=== PATIENT | male | born 1985 | race Caucasian/White ===

== ENCOUNTER 2016-06-08 10:05 | Emergency (ER) | payer MEDICAID ==
[~2016-06-08] VITALS: Wt 72.5 kg
[2016-06-08] MEDS ORDERED: ALBU18HF INHALATION (10:46)
[2016-06-08] MEDS ORDERED: PRED20TA PO (10:46)
--- NOTE | 2016-06-08 13:51 | ERD ---
ER Documentation Chief Complaint Date/Time DATE: 06/08/16 TIME: 13:49 Chief Complaint COUGH WITH SORE THROAT BUT NO EAR PAIN. INTERMITTENT FEVERS HPI Patient is a 31-year-old male with no medical problems who presents with cough and fever. He has had cough for the past 4 weeks and fever which started last night. He also has diffuse fatigue. He also has headache and wheezing. He tried [id number] TheraFlu and Robitussin. He had chest pain last week along with a cough but no chest pain currently. Upon review of old medical records this is the patient's second visit to the emergency department since 2012. He does not currently have a primary doctor. ROS All systems reviewed and are negative except as per history of present illness. Medications Home Meds Active Scripts Albuterol Sulfate* (Ventolin HFA*) 18 Gm Hfa.aer.ad, 2 PUFF INHALATION Q4H, #1 INHALER Prov:DAVID DYER MD 06/08/16 Prednisone* (Prednisone*) 20 Mg Tab, 60 MG PO DAILY for 5 Days, TAB Prov:DAVID DYER MD 06/08/16 Allergies Allergies: Coded Allergies: No Known Allergy (Unverified , 06/08/16) PMhx/Soc Medical and Surgical Hx: pt denies Surgical Hx Hx Respiratory Disorders: Yes (bronchitis) Hx Cardiac Disorders: No Hx Psychiatric Problems: No Hx Miscellaneous Medical Probl: No Hx Alcohol Use: Yes (socially) Hx Substance Use: No Hx Tobacco Use: No Smoking Status: Never smoker FmHx Family History: No diabetes Physical Exam Vitals Vital Signs Date Time Temp Pulse Resp B/P Pulse Ox O2 Delivery O2 Flow Rate FiO2 06/08/16 10:08 99.1 105 22 123/85 98 Physical Exam Const: No acute distress Head: Atraumatic Eyes: Normal Conjunctiva ENT: Normal External Ears, Nose and Mouth. Neck: Full range of motion..~ No meningismus. Resp: Diffuse expiratory wheezing without retractions or accessory muscle use Cardio: Regular rate and rhythm, no murmurs Abd: Soft, non tender, non distended. Normal bowel sounds Skin: No petechiae or rashes Back: No midline or flank tenderness Ext: No cyanosis, or edema Neur: Awake and alert Psych: Normal Mood and Affect Procedures/MDM Patient is a 31-year-old male presents with what appears to be an acute viral infection with upper respiratory infection. I believe this is causing airway inflammation leading to wheezing. He will be treated with albuterol inhaler and prednisone for 5 days. I doubt serious bacterial infection. I doubt pneumonia, pneumothorax, or pulmonary embolism. I believe outpatient management is appropriate. The patient can return sooner for any worsening symptoms. I do not believe the patient needs further workup or admission to the hospital at this time. However the patient will need close follow-up with a primary doctor within 24-48 hours and since he does not currently have a primary doctor I will give him information for the local clinics. Departure Diagnosis: Primary Impression: URI (upper respiratory infection) URI type: unspecified viral URI Qualified Code: J06.9 - Viral upper respiratory tract infection Additional Impression: Cough Condition: Fair Patient Instructions: Uri, Viral, No Abx (Adult) Referrals: [facility] Usted se clancy hecho un examen mdico de control que le indica que no est en bulmaro condicin que requiera tratamiento urgente en el Departamento de Emergencia. Un estudio ms profundo y el tratamiento de paul condicin pueden esperar sin ningn riesgo hasta que usted sea atendida/o en el consultorio de paul mdico o bulmaro cl demian. Es responsabilidad suya arreglar bulmaro shadi para el seguimiento del olga. MANEJO DE CONDICIONES NO URGENTES EN EL FUTURO 1) Si usted tiene un mdico de atencin primaria: Usted debera llamar a paul mdico de atencin primaria antes de venir al departamento de emergencia. Despus de las horas de consultorio, paul doctor o paul asociado/a est disponible por telfono. El mdico o enfermero de lani en el servicio telefnico puede asesorarle por wilian medio para atender el problema, o olga contrario se puede programar bulmaro shadi. 2) Si usted no tiene un mdico de atencin primaria: Llame al mdico o clnica de referencia que aparece abajo penny las horas de consultorio para hacer bulmaro shadi para que le vean. CLINICAS: [facility] [phone] [facility] [phone] [facility] [phone] [place] [phone] [place] [address] [phone] [facility] [phone] [address] Additional Instructions: Llame al doctor MAANA y jessy bulmaro SHADI PARA DENTRO DE 1-2 STOUT.Dgale a la secretaria que nosotros le instruimos hacer esta shadi.Avise o llame si paul condicin se empeora antes de la shadi. Regresa aqui si peor o no mejor. DAVID DYER MD Jun 08, 2016 13:51
== END 2016-06-08 11:16 | disposition home or self-care (01) ==
LOC: FTE 10:05
DX: J06.9 Acute upper respiratory infection, unspecified (principal)
CPT/HCPCS: 99284

== ENCOUNTER 2017-06-04 20:19 | Emergency (ER) | END 2017-06-05 00:04 | disposition home or self-care (01) ==

== ENCOUNTER 2018-05-02 04:56 | Emergency (ER) | payer MEDICAID ==
[~2018-05-02] VITALS: Wt 83.2 kg
[~2018-05-02 04:56] MED LIST: ALBU18HF INHALATION; ALBU8.5H8 INH; AZIT250T PO; BENZ-6 PO; PRED20TA PO
[2018-05-02 05:01] VITALS: BP 141/83; PULSE 95; RESP 20
[2018-05-02] MEDS ORDERED: AZIT250T PO (05:32)
[2018-05-02] MEDS ORDERED: PROM6.2515 PO (05:32)
[2018-05-02] MEDS ORDERED: ALBU8.5H8 INH (05:32)
[2018-05-02] MEDS ORDERED: BENZ-6 PO (05:32)
[2018-05-02] MEDS ORDERED: MED4DP PO (05:32)
--- NOTE | 2018-05-02 05:38 | ERD ---
ER Documentation Chief Complaint Chief Complaint COUGH, CONGESTION, SOB X'S 5 DAYS HPI 33-year-old male presenting with dry cough times 2 days. Patient has a mild runny nose. No fevers. No medication use. Denies any chest pain. Denies pleuritic chest pain. Denies medical problems. NKDA. Surgical history denies. Social history denies ROS All systems reviewed and are negative except as per history of present illness. Medications Home Meds Active Scripts Albuterol Sulfate* (Proair HFA*) 8.5 Gm Hfa.aer.ad, 2 PUFF INH Q4, #1 INHALER Prov:JOANNE PÉREZ PA-C 05/02/18 Methylprednisolone* (Medrol* DOSE PACK) 4 Mg/Dose-Pack Tab.ds.pk, 4 MG PO . DIRECTED, #1 PACKET Prov:JOANNE PÉREZ PA-C 05/02/18 Promethazine Hcl* (Promethazine Hcl* Syrup) 6.25 Mg/5 Ml Syrup, 6.25 MG PO Q6H PRN for COUGH, #100 ML Prov:JOANNE PÉREZ PA-C 05/02/18 Benzonatate* (Tessalon Perle*) 100 Mg Capsule, 100 MG PO Q8H PRN for COUGH, #30 CAP Prov:JOANNE PÉREZ PA-C 05/02/18 Azithromycin* (Zithromax*) 250 Mg Tablet, 250 MG PO .ZPACK DIRECTED, #6 TAB TAKE 500 MG (2 TABS) THE FIRST DAY THEN 250 MG (1 TAB) DAYS 2-5 Prov:JOANNE PÉREZ PA-C 05/02/18 Azithromycin* (Zithromax*) 250 Mg Tablet, 250 MG PO .ZPACK DIRECTED, #6 TAB TAKE 500 MG (2 TABS) THE FIRST DAY THEN 250 MG (1 TAB) DAYS 2-5 Prov:MARYCRUZ PAT PA-C 06/04/17 Albuterol Sulfate* (Proair HFA*) 8.5 Gm Hfa.aer.ad, 2 PUFF INH Q4, #1 INHALER Prov:MARYCRUZ PAT PA-C 06/04/17 Benzonatate* (Tessalon Perle*) 100 Mg Capsule, 100 MG PO Q8H PRN for COUGH, #20 CAP Prov:MARYCRUZ PAT PA-C 06/04/17 Albuterol Sulfate* (Ventolin HFA*) 18 Gm Hfa.aer.ad, 2 PUFF INHALATION Q4H, #1 INHALER Prov:DAVID DYER MD 06/08/16 Prednisone* (Prednisone*) 20 Mg Tab, 60 MG PO DAILY for 5 Days, TAB Prov:DAVID DYER MD 06/08/16 Allergies Allergies: Coded Allergies: No Known Allergy (Unverified , 06/08/16) PMhx/Soc Hx Respiratory Disorders: Yes (bronchitis) Hx Cardiac Disorders: No Hx Psychiatric Problems: No Hx Miscellaneous Medical Probl: No Hx Alcohol Use: Yes (socially) Hx Substance Use: No Hx Tobacco Use: No FmHx Family History: No diabetes, No coronary disease, No other Physical Exam Vitals Vital Signs Date Temp Pulse Resp B/P (MAP) Pulse Ox O2 O2 Flow FiO2 Time Delivery Rate 05/02/18 97.6 95 20 141/83 97 05:01 (102) Physical Exam GENERAL: The patient is well-appearing, well-nourished, in no acute distress HEENT: Atraumatic. Conjunctivae are pink. Pupils equal, round, and reactive to light. There is no scleral icterus. Tympanic membranes clear bilaterally. Oropharynx clear. NECK: C-spine is soft and supple. There is no meningismus. There is no cervical lymphadenopathy. CHEST: Clear to auscultation bilaterally. There are no rales, wheezes or rhonchi. HEART: Regular rate and rhythm. No murmurs, clicks, rubs or gallops. No S3 or S4. Procedures/MDM MDM: 33-year-old male presenting with cough. I have low suspicion for respiratory distress or hypoxia. He patient is discharged with supportive medications. We will treat with antibiotics given his symptoms are progressively worsening. Patient is told symptoms change or worsen to return immediately to the ER. All questions answered at discharge Departure Diagnosis: Primary Impression: Cough Condition: Stable Patient Instructions: Cough, Chronic, Uncertain Cause, (Adult) Referrals: [facility] YOU HAVE RECEIVED A MEDICAL SCREENING EXAM AND THE RESULTS INDICATE THAT YOU DO NOT HAVE A CONDITION THAT REQUIRES URGENT TREATMENT IN THE EMERGENCY DEPARTMENT. FURTHER EVALUATION AND TREATMENT OF YOUR CONDITION CAN WAIT UNTIL YOU ARE SEEN IN YOUR DOCTORS OFFICE WITHIN THE NEXT 1-2 DAYS. IT IS YOUR RESPONSIBILITY TO MAKE AN APPOINTMENT FOR FOLOW-UP CARE. IF YOU HAVE A PRIMARY DOCTOR --you should call your primary doctor and schedule an appointment IF YOU DO NOT HAVE A PRIMARY DOCTOR YOU CAN CALL OUR PHYSICIAN REFERRAL HOTLINE AT IF YOU CAN NOT AFFORD TO SEE A PHYSICIAN YOU CAN CHOSE FROM THE FOLLOWING [facility] [address] [facility] [place] [address] [facility] [address] [facility] [address] [facility] [address] [facility]. [facility]. [address] Additional Instructions: FOLLOW UP WITH YOUR PRIMARY CARE PHYSICIAN TOMORROW.Return to this facility if you are not improving as expected. JOANNE PÉREZ PA-C May 02, 2018 05:38
== END 2018-05-02 05:57 | disposition home or self-care (01) ==
LOC: FTE 04:56
DX: R05 Cough (principal)
CPT/HCPCS: 99283